=== PATIENT | female | born 2000 | race Caucasian/White ===

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

== ENCOUNTER 2023-01-15 11:30 | Outpatient (REF) | payer BC, SELFPAY ==
--- NOTE | 2023-01-15 13:40 | PAPFT_PTH ---
PATIENT: Dorita Malhotra LOC: [facility] U#:[id number] AGE/SX: 22/F ROOM: RE01/15/[address]: Deepika Peace : 2000 BED: DIS: 01/15/2023 SPEC #: [id number] RECD: 01/16/23 18:39 STATUS: ZUHAIR RELeroy #: [id number] MEGAN: 01/15/23 13:[address]: Deepika Peace DEPT: [facility] Cytology RECD BY: Elizabeth Bal ENTERED: 01/16/23 18:39 SP TYPE: PAPFT OTHR DR: Unknown,Unknown Tissues: 1 - CX/ENDOCX FOR PAP SMEARS Procedures: PAP THIN PREP/[facility] Screening Comments: [id number] (CHLAMYDIA/GC)
[2023-01-17 12:58] LABS: Chlamydia Result Negative (Negative); GC Result Negative (Negative)
== END 2023-01-15 11:31 | disposition home or self-care (01) ==
LOC: NCHCN 11:30
PROVIDERS: Visit Provider Family Medicine
DX: Z12.4 Encounter for screening for malignant neoplasm of cervix (principal)
CPT/HCPCS: 87491; 87591; 88142